=== PATIENT | male | born 1970 | race Caucasian/White ===

== ENCOUNTER 2017-09-23 05:35 | Emergency (ER) | payer OTHER ==
[2017-09-23] MEDS ORDERED: methylPREDNISolone Sod Succ/PF 125 MG/2 ML VIAL ONE (08:06)
--- NOTE | 2017-09-23 08:16 | RAD ---
PA AND LATERAL VIEWS CHEST: HISTORY: Cough. FINDINGS: The heart size is normal. The lungs are expanded without focal areas of consolidation, pneumothorax, or pleural effusions. There are mild degenerative changes in the spine. IMPRESSION: No radiographic evidence of acute cardiopulmonary process. POS: [facility]
== END 2017-09-23 08:27 | disposition home or self-care (01) ==
LOC: ERS 05:35
DX: J20.9 Acute bronchitis, unspecified (principal); F43.10 Post-traumatic stress disorder, unspecified; Z79.899 Other long term (current) drug therapy
CPT/HCPCS: 71046; 96372; J2930

== ENCOUNTER 2017-12-11 16:24 | Observation (INO) | payer OTHER ==
[2017-12-11 16:44] LABS: #Eosinphils 0.1 thou/uL (0.0-0.7); #Lymphocytes 1.7 thou/uL (1.20-3.40); #Monocytes 0.5 thou/uL (0.11-0.59); %Basophils 0.7 % (0.0-1.0); %Eosinophils 1.3 % (0.0-10.0); %Monocytes 7.3 % (0.0-10.0); %Neutrophils 63.8 % (42.0-75.0); Hemoglobin 14.4 g/dL (14.0-18.0); Mean Corpuscular HGB CONC 35.6 g/dL (32.0-36.0); Mean Corpuscular Hemoglobin 31.4 pg (27.0-31.0); Mean Corpuscular Volume 88.1 fl (80.0-94.0); Mean Platelet Volume 8.5 fL (7.4-10.4); Platelet Count 175 thou/uL (130-400); RBC Distribution Width 11.5 % (11.5-14.5); Red Blood Cell (RBC) Count 4.58 mill/uL (4.70-6.10); White Blood Cell (WBC) Count 6.3 thou/uL (4.8-10.8)
[2017-12-11 17:04] LABS: CKMB 4.2 ng/mL (0-6.6); Troponin I 0.014 ng/mL (< 0.028)
[2017-12-11] MEDS ORDERED: Nitroglycerin 2% Ointment 1 INCH/1 GM Packet ONE (17:14)
[2017-12-11] MEDS ORDERED: Acetaminophen 500 MG TAB ONE (17:14)
[2017-12-11 17:20] LABS: ALT (SGPT) 49 U/L (8-55); AST (SGOT) 28 U/L (5-34); Albumin 4.2 g/dL (3.5-5.0); Alkaline Phosphatase 59 U/L (40-150); Anion Gap 14 mmol/L (10-20); BUN (Urea Nitrogen) 15 mg/dL (8.9-20.6); Bilirubin, Total 0.7 mg/dL (0.2-1.2); CK (CPK) 553 U/L (30-200); Calc. Creatinine Clearance 0 mL/min (70-130); Calcium 9.2 mg/dL (7.8-10.44); Carbon Dioxide 21 mmol/L (22-29); Chloride 110 mmol/L (98-107); Estimated GFR-MDRD 65; Globulin 3.1 g/dL (2.4-3.5); Glucose 127 mg/dL (70-105); Protein, Total 7.3 g/dL (6.0-8.3); Sodium 141 mmol/L (136-145)
--- NOTE | 2017-12-11 19:15 | RAD ---
SINGLE VIEW OF THE CHEST 12/11/17 COMPARISON: HISTORY: Chest pain. FINDINGS: Single view of the chest shows a normal sized cardiomediastinal silhouette. There is no evidence of c onsolidation, mass, or pleural effusion. The bones are unremarkable. IMPRESSION: No evidence of acute cardiopulmonary disease. POS: [facility]
[2017-12-11] MEDS ORDERED: Acetaminophen 650 MG Suppository PR PRN (19:16)
[2017-12-11] MEDS ORDERED: Acetaminophen 325 MG TAB PO PRN (19:16)
[2017-12-11] MEDS ORDERED: Ondansetron HCl/PF 4 MG/2 ML Vial IVP PRN (19:16)
[2017-12-11] MEDS ORDERED: Nitroglycerin 0.4 MG TAB (25 Tab Bottle) PO PRN (19:16)
[2017-12-11 20:18] LABS: Cardiac Risk 6.8 (Less than 4.5)
[2017-12-11 20:28] LABS: Troponin I 0.011 ng/mL (< 0.028)
--- NOTE | 2017-12-11 20:35 | HP ---
PRIMARY CARE PROVIDER: [facility] in [place], [place]. CHIEF COMPLAINT: Chest pain. HISTORY OF PRESENT ILLNESS: Mr. Orona is a pleasant 47-year-old gentleman who was seen at [facility] on 12/11/2017. He reports that he is currently stressed because of situation at work, where he may lose his job. Ov er the last several days, he has had on and off chest discomfort. He describes these episodes of samm rt lasting. Over the last 3 days, he had retrosternal chest discomfort, on and off, no known aggrava ting or relieving factors, initially retrosternal, subsequently over the left side of the chest, pres sure-like, 7-8/10 at its worst, radiating down his left arm. Patient reports that he is unable to ca tch deep breaths. He also reports nausea. He had 3 loose stools today. He denies any diaphoresis. He was lightheaded yesterday. He also reports that 2 days ago, he was working in the yard and felt like he would pass out. In the emergency room, he received aspirin and nitroglycerin and rates his chest discomfort as 1 out of 10. REVIEW OF SYSTEMS: All other systems reviewed and found to be negative. PAST MEDICAL HISTORY: Dyslipidemia in the past, he was treated with Lipitor which was subsequently s topped given his lipid profile normalized. PAST SURGICAL HISTORY: L4-L5 fusion in 2006. FAMILY HISTORY: Significant for coronary artery disease in extended family. His father has atrial f ibrillation. ALLERGIES: No known drug allergies. CURRENT MEDICATIONS: Nexium 20 mg daily. SOCIAL HISTORY: Patient denies tobacco use, alcohol use or recreational drug use. PHYSICAL EXAMINATION: GENERAL: Mr. Orona is awake and alert, not in acute distress. VITAL SIGNS: Blood pressure is 132/74, pulse is 69, his breathing at rate of 17 and saturating 95% o n room air. He is obese. He is afebrile. EYES: No scleral icterus. No conjunctival pallor. ENT: Moist mucosal membranes, no oropharyngeal erythema or exudates. NECK: Supple, nontender, normal range of movement. Trachea is midline. RESPIRATORY: Accessory muscles of breathing are not active. Chest wall movements are symmetric bila terally. LUNGS: Clear to auscultation without wheeze, rhonchi or crepitations. CARDIOVASCULAR: S1, S2 are heard, regular. Peripheral pulses palpable. No carotid bruit, no perica rdial rub. ABDOMEN: Soft, nontender, bowel sounds are heard, no hepatomegaly, no splenomegaly. NEUROLOGIC: Cranial nerves II-XII are intact. Deep tendon reflexes 2+. MUSCULOSKELETAL: Power is 5/5 in all 4 extremities. SKIN: No rashes or subcutaneous nodules. LYMPHATIC: No cervical lymphadenopathy. PSYCHIATRIC: Normal mood, normal affect, patient is oriented to person, place, and time. DATABASE: Mr. Orona's labs and investigations were reviewed. I reviewed his electrocardiogram, [facility] shows normal sinus rhythm and incomplete right bundle-branch block, no ST changes to suggest an ac [place] coronary syndrome. I also reviewed his chest x-ray, which does not show any pulmonary infiltrate s. He has an unremarkable CBC, normal sodium, normal potassium, decreased carbon dioxide of 21, elev ated CK of 553, normal liver profile, and normal troponin I. ASSESSMENT AND PLAN: Mr. Orona is a pleasant 47-year-old gentleman who was seen at [facility] on 12/11/2017. His problem list includes: 1. Chest pain: Etiology unclear. Patient will be admitted to the hospital on observation status fo r further workup, including telemetry monitoring rechecking troponin level and stress test. We will also check a D-dimer to rule out pulmonary embolism. 2. Rhabdomyolysis: We will provide gentle IV hydration and recheck CK level. Creatinine is normal. 3. History of dyslipidemia: Patient reports that his lipid profile normalized. We will advise him to follow up with his primary care provider. 4. History of vertebral fractures: Stable. Many thanks for allowing me to participate in your patient's care. Please feel free to contact me wi th any questions or concerns. LEVEL OF RISK: High. LEVEL OF COMPLEXITY: High.
[2017-12-11 21:36] VITALS: BMI 40.6
[2017-12-11 23:14] LABS: Troponin I 0.013 ng/mL (< 0.028)
[2017-12-12 04:59] LABS: #Basophils 0.1 thou/uL (0.0-0.2); #Eosinphils 0.2 thou/uL (0.0-0.7); #Monocytes 0.5 thou/uL (0.11-0.59); #Neutrophils 1.7 thou/uL (1.40-6.50); %Basophils 1.5 % (0.0-1.0); %Eosinophils 4.3 % (0.0-10.0); %Lymphocytes 44.7 % (21.0-51.0); %Neutrophils 38.5 % (42.0-75.0); Hemoglobin 13.7 g/dL (14.0-18.0); Mean Corpuscular HGB CONC 35.1 g/dL (32.0-36.0); Mean Corpuscular Hemoglobin 31.4 pg (27.0-31.0); Mean Corpuscular Volume 89.3 fl (80.0-94.0); Mean Platelet Volume 7.9 fL (7.4-10.4); Platelet Count 155 thou/uL (130-400); RBC Distribution Width 11.6 % (11.5-14.5); Red Blood Cell (RBC) Count 4.37 mill/uL (4.70-6.10); White Blood Cell (WBC) Count 4.4 thou/uL (4.8-10.8)
[2017-12-12 05:22] LABS: Anion Gap 9 mmol/L (10-20); BUN (Urea Nitrogen) 17 mg/dL (8.9-20.6); Calc. Creatinine Clearance 126 mL/min (70-130); Carbon Dioxide 25 mmol/L (22-29); Chloride 110 mmol/L (98-107); Estimated GFR-MDRD 71; Glucose 133 mg/dL (70-105); Potassium 3.8 mmol/L (3.5-5.1); Sodium 140 mmol/L (136-145)
[2017-12-12] MEDS ORDERED: Enoxaparin Sodium 40 MG/0.4 ML SYRINGE SC SCH (09:00)
[2017-12-12] MEDS ORDERED: Aspirin 325 MG TAB PO SCH (09:00)
[2017-12-12] MEDS ORDERED: Regadenoson 0.4 MG/5 ML SYRINGE ONE (11:01)
--- NOTE | 2017-12-12 13:08 | NM ---
MYOCARDIAL PERFUSION EVALUATION: INDICATION: History of asthma with moderate COPD and chest pain. RADIOPHARMACEUTICAL: 37 mCi Technetium 99m sestamibi IV with stress and 9.5 mCi Technetium 99m sestamibi IV with rest. FINDINGS: There is no reversible myocardial perfusion defect demonstrated. There is normal wall motion and thi ckening. The LVEF is noted at 68%. IMPRESSION: No scintigraphic evidence to suggest myocardial ischemia. POS: [facility]
[2017-12-12 14:00] VITALS: BP 144/96; TEMP 98.5
--- NOTE | 2017-12-12 15:54 | DIS ---
DATE OF ADMISSION: 12/11/2017 DATE OF DISCHARGE: 12/12/2017 PRIMARY CARE PROVIDER: [facility] in [place], [place]. DISCHARGE DIAGNOSES: 1. Chest pain. 2. Dyslipidemia. 3. Rhabdomyolysis. CONDITION OF PATIENT AT THE TIME OF DISCHARGE: Stable. I assessed Mr. Orona on the day of discharg e. He reports that chest pain has resolved. Vital signs are stable. S1 and S2 are heard, regular. Lungs are clear to auscultation bilaterally. DISCHARGE MEDICATIONS: Esomeprazole 20 mg daily. He has been advised to follow up with his primary care provider for treatment of dyslipidemia. HOSPITAL COURSE: Mr. Orona is a pleasant 47-year-old gentleman who was admitted to [facility] on 12/11/2017 for chest pain. He had a low D-dimer. On 12/12/2017, he underwent n uclear stress test, which did not show any evidence to suggest myocardial ischemia. Left ventricular ejection fraction was 68%. He also received fluids for his rhabdomyolysis, with improvement of CK l evel. There was no renal insufficiency. On the day of discharge, his CK was 364, down from 553 on 0 12/11/2017. During this hospitalization, he had triglycerides 252, cholesterol 191, LDL cholesterol 1 13 and HDL cholesterol 28. He is advised to follow up with his primary care provider for treatment o f dyslipidemia. He was also advised to maintain good oral water intake. Many thanks for allowing me to participate in your patient's care. Please feel free to contact me wi th any questions or concerns. DISCHARGE DESTINATION: Home.
--- NOTE | 2017-12-20 13:10 | STRESS ---
Acquisition Time: 2017-12-12 10:49:58 Total Exercise Time: 00:01:00 Test Indications: CHEST PAIN Medications: Protocol: LEXISCAN Max HR: 092 BPM 52% of Pred: 174 BPM Max BP: 124/080 mmHG Max Work Load: 1.0 METS RESTING ECG: SINUS BRADYCARDIA AT 42 BPM SYMPTOMS: NONE NORMAL BP RESPONSE ECTOPY: NONE ECG STRESS: NO SIGNIFICANT CHANGES; TRANSIENT NON-SPECIFIC ST SEGMENT AND T-WAVE CHANGES WITH LEXISCAN INFUSION INTERPRETATION: INDETERMINATE ECG/AWAIT NUCLEAR IMAGES FOR DEFINITIVE DIAGNOSIS Confirmed by MAI ALEJANDRO ([id number]) on 12/20/2017 1:09:40 PM Referred By: MD Dave LOYOLA Confirmed By:MAI ALEJANDRO
== END 2017-12-12 15:07 | disposition home or self-care (01) ==
LOC: ERS 16:24 → 2SW 18:20
PROVIDERS: ADMIT Internal Medicine; ATTEND Internal Medicine
DX: R07.89 Other chest pain (principal); E78.5 Hyperlipidemia, unspecified; M62.82 Rhabdomyolysis; Z79.899 Other long term (current) drug therapy; Z98.1 Arthrodesis status
CPT/HCPCS: 36415; 71045; 78452; 80048; 80053; 80061; 82550; 82553; 84484; 85025; 85379; 93005; 93017; 94760; 96372; A9500; G0378; J1650; J2785